=== PATIENT | male | born 2000 | race Two or more races ===

== ENCOUNTER 2023-12-02 01:51 | Emergency (ER) | payer MEDICAID, OTHER ==
[~2023-12-02] VITALS: Ht 167.6 cm; Wt 99.2 kg
[2023-12-02] MEDS: InsuLIN REG 1unit/0.01ml Soln (100units/ml) SC ONE (02:49)
[2023-12-02 03:04] LABS: Basophils # (auto) 0.1 10 ^3/uL (0-0.2); Eosinophils # (auto) 0.2 10 ^3/uL (0-0.8); Eosinophils % (auto) 3.3 % (0.0-7.0); Hematocrit 44.8 % (41.0-53.0); Hemoglobin 14.7 g/dL (13.5-17.5); Lymphocytes # (auto) 1.6 10 ^3/uL (0.4-5.4); Lymphocytes % (auto) 24.7 % (10.0-50.0); Mean Corpuscular Hgb Conc. 32.9 g/dL (32.0-36.0); Mean Corpuscular Volume 88.2 fL (80.0-100.0); Monocytes # (auto) 0.5 10 ^3/uL (0-1.3); Monocytes % (auto) 8.1 % (0.0-12.0); Neutrophils % (auto) 62.9 % (37.0-80.0); Red Blood Cells 5.09 10^6/uL (4.5-5.90); Red Cell Distribution Width 13.3 % (11.8-14.3); White Blood Cell 6.3 10^3/uL (4.4-10.8)
[2023-12-02 03:13] LABS: Chloride 101 mmol/L (98-107); Potassium 4.5 mmol/L (3.5-5.1); Sodium 134 mmol/L (136-145)
[2023-12-02 03:14] LABS: Anion Gap 5 (5-15); Carbon Dioxide 28 mmol/L (20-30)
[2023-12-02 03:19] LABS: Blood Urea Nitrogen 11 mg/dL (9-23)
[2023-12-02 03:43] LABS: Glucose 574 mg/dL (74-106)
[2023-12-02] MEDS ORDERED: INSLISPI SC (03:43)
[2023-12-02 03:58] VITALS: BP 115/70; PULSE 86; RESP 20; TEMP 98.6; O2SAT 95
== END 2023-12-02 03:59 | disposition home or self-care (01) ==
LOC: ER 01:51
DX: E11.65 Type 2 diabetes mellitus with hyperglycemia (principal)
CPT/HCPCS: 36415; 80048; 85025; 96372; 99283; J1815